=== PATIENT | male | born 1970 ===

== ENCOUNTER 2024-06-11 09:12 | Outpatient (CLI) | payer OTHER, SELFPAY ==
--- NOTE | 2024-06-11 09:21 | MR_ITS ---
WS: [id number] MRI ORBITS WITH AND WITHOUT CONTRAST. COMPARISON: None Multiplanar, multisequence imaging is performed with and without contrast. MultiHance 19 mL. History: Facial spasms, right-sided. Diffusion imaging is normal. No hemorrhage. Mild cerebral atrophy. There are few scattered T2 and FLAIR signal hyperintensities within the white matter. Greatest distribution in the posterior LEFT parietal lobe. No prior large territory infarct. Ventricles are normal size. Symmetric appearance of the orbits and optic nerves. No enhancing mass. No displacement of the optic chiasm or the infundibulum. Pituitary gland is normal size. Cerebellopontine angles are normal. No signal abnormality along the 7th or 8th cranial nerves. Motion artifact on sequences limiting assessment for fine details and nerve enhancement. Dural venous sinuses are normal. Small amount of fluid in the RIGHT sphenoid sinus. Mastoid air cells are clear. MR/MR orbit face neck wo/w* [id number] IMPRESSION: 1. No acute infarct, hemorrhage or enhancing mass. 2. Normal appearance of the orbits. 3. No signal abnormality along the 7th or 8th cranial nerves. There is mild li mitation of fine detail due to motion artifact. 4. Mild atrophy and small vessel disease.
[2024-06-11] MEDS: gadobenate dimeglumine 20 mL vial 19 ML IV (10:14)
== END 2024-06-11 09:13 | disposition home or self-care (01) ==
PROVIDERS: PCP Physician Assistant; Visit Provider General Practice
DX: G51.31 Clonic hemifacial spasm, right (principal); G31.89 Other specified degenerative diseases of nervous system; R93.0 Abnormal findings on diagnostic imaging of skull and head, not elsewhere classified
CPT/HCPCS: 70543; A9577